=== PATIENT | female | born 1985 | race Caucasian/White ===

== ENCOUNTER → 2017-08-25 | Outpatient (CLI) | payer OTHER ==
[~2017-08-25] MED LIST: BCP TD; BIRTH CONTROL PILLS; FLEXERIL5 MG PO; LORTAB 5/500 501 TAB PO; PERCOCET 5/321 UDTAB PO
== END ==
LOC: COL.RAD 08:15
DX: R10.11 Right upper quadrant pain (principal)

== ENCOUNTER 2019-03-03 06:11 | Inpatient (IN) | payer OTHER ==
[~2019-03-03] VITALS: Ht 165.1 cm; Wt 91.4 kg
[2019-03-03] VITALS (22 sets, daily range): BP systolic 102–149; BP diastolic 53–77; PULSE 70–111; TEMP 97.6–98.7
--- NOTE | 2019-03-03 06:25 | NUR ---
Pt here from ER with c/o contractions since 329. Pt to EF, explained. G1, 40.4 weeks gestation. SVE: 8+/100/0 with bulgy bag of mancia. FHR reactive. Contractions every 2-4 minutes. Pt denies wanting an epidural. 0634:Dr Thomas called and notified. Will head to hospital for delivery. IV started to left wrist, blood drawn from site and sent to laboratory. Assessment complete, complicated with HSV and hypothyroidism. GBS negative. 0702:Dr Thomas here and at bedside. SVE: 9-10/100/0. AROM, clear fluid noted. 0725:Pt states needing to push and baring down with contractions. SVE: AL/100/-1. 0732:Ernesto at bedside, SVE: complete/0. Pt pushing with contractions. 0750:Pt up to bathroom. FHR with moderate variability and accels with recurrent variable decelerations. DR thomas at nurse's station monitoring.
[2019-03-03] MEDS ORDERED: LEVOXYL0.025 MG PO (06:53)
[2019-03-03] MEDS ORDERED: ZOVIRAX400 MG PO (06:54)
[2019-03-03] MEDS ORDERED: PRENATAL PO (07:15)
[2019-03-03] MEDS ORDERED: PEPCID 20MG TAB20 MG PO (07:16)
[2019-03-03 07:19] LABS: BASO % 0.2 % (0.0-2.0); EOS # 0.1 (0.0-0.7); EOS % 0.6 % (0-4.0); GRAN # 9.5 (1.4-6.5); GRAN % 71.2 % (42.2-75.2); HEMATOCRIT 40.4 % (37.0-47.0); HEMOGLOBIN 13.8 g/dl (12.5-16.0); LYMPH # 2.6 (1.2-3.4); LYMPH % 19.8 % (20.0-51.0); MEAN CELL VOLUME 96 fl (80.0-100.0); MEAN CORPUSCULAR HEMOGLOBIN 33 pg (27.0-31.0); MEAN CORPUSCULAR HGB CONC 34 g/dl (33.0-37.0); MEAN PLATELET VOLUME 12.1 fl (7.4-10.4); MONO % 7.3 % (1.7-9.3); PLATELET COUNT 160 K/mm3 (130-400); RED BLOOD COUNT 4.22 M/mm3 (4.10-5.30); REDCELL DISTRIBUTION WIDTH-CV 14.1 % (11.5-14.5)
--- NOTE | 2019-03-03 08:05 | NUR ---
Pt up to bathroom per request. FHR reactive. This nurse at side. 5425:Dr Lopez at bedside. Will continue to push and monitor.
--- NOTE | 2019-03-03 09:20 | NUR ---
Dr Lopez here and pt sitting on commode at side of bed pushing with contractions. Recurrent variable decelerations noted, physician reviews montior strip. Pt pushes with physician at bedside. Pt making progress. 0935:Pt prepped for delivery. Pt continues to push with contractions. 1004: of infants head and shoulders. Infant in care of Eric NATH. 1011:Spontaneous delivery of placenta, LR with pitocin infusing at 333ml/hr. 2nd degree laceration repaired by physician. Fundus firm, bleeding WNL. pericare done and ice pack in place.
--- NOTE | 2019-03-03 12:00 | NUR ---
Pt up to bathroom, unable to void at this time. Pericare instructions given and new gown, pads and ice pack in place. Pt c/o abd cramping, see EMAR. Pt ambulates to room 208 without difficulty. Instructed pt to attempt to void in 30 minutes. Fundus firm, bleeding is WNL. 1230:Pt up to bathroom, voids 300cc. Family at bedside, denies needs.
[2019-03-04 02:00] VITALS: BP 98/67; PULSE 58; TEMP 98.6
[2019-03-04 08:00] VITALS: BP 104/62; PULSE 76; TEMP 98.1
[2019-03-04] MEDS ORDERED: IBU600 MG PO (08:19)
[2019-03-04] MEDS ORDERED: PERCOCET 325 MG1 TA2 PO (08:19)
[2019-03-04 08:26] LABS: HEMATOCRIT 33.9 % (37.0-47.0); HEMOGLOBIN 11.4 g/dl (12.5-16.0)
--- NOTE | 2019-03-04 10:15 | NUR ---
Initial visit; Mom thanked Optical Manager for offering congratulations and God's blessings for the of her daughter. Optical Manager thanked family for choosing [facility].
== END 2019-03-04 13:15 | disposition home or self-care (01) | DRG 807 ==
LOC: LDRO 06:11 → LDR 06:30 → OB 12:00
PROVIDERS: ADMIT Obstetrics & Gynecology
PROC: 10E0XZZ Delivery of Products of Conception, External Approach (ICD-10-PCS; principal; 2019-03-03)
PROC: 0KQM0ZZ Repair Perineum Muscle, Open Approach (ICD-10-PCS; 2019-03-03)
DX: O48.0 Post-term pregnancy (principal); Z37.0 Single live birth; O99.284 Endocrine, nutritional and metabolic diseases complicating childbirth; E03.9 Hypothyroidism, unspecified; O99.62 Diseases of the digestive system complicating childbirth; Z3A.40 40 weeks gestation of pregnancy; K58.9 Irritable bowel syndrome, unspecified; O70.1 Second degree perineal laceration during delivery
CPT/HCPCS: J2590; J7120

== ENCOUNTER → 2019-08-28 | Outpatient (CLI) | payer OTHER ==
[~2019-08-28] MED LIST changes: +IBU600 MG PO; +LEVOXYL0.025 MG PO; +PEPCID 20MG TAB20 MG PO; +PERCOCET 325 MG1 TA2 PO; +PRENATAL PO; +ZOVIRAX400 MG PO
== END ==
LOC: COL.RAD 12:00
DX: M79.89 Other specified soft tissue disorders (principal)